=== PATIENT | male | born 1945 | race Caucasian/White ===

== ENCOUNTER 2022-08-05 15:05 | Inpatient (IN) | payer MEDICARE, OTHER ==
[~2022-08-05] VITALS: Ht 170.2 cm; Wt 84.5 kg
[2022-08-05] MEDS ORDERED: TORSEMIDE100 MG PO (15:33)
[2022-08-05] MEDS ORDERED: LOSARTAN POTASS25 MG PO (15:34)
[2022-08-05] MEDS ORDERED: SPIRONOLACTONE25 MG PO (15:34)
[2022-08-05] MEDS ORDERED: ISOSORBIDE MONO60 MG PO (15:35)
[2022-08-05] MEDS ORDERED: METFORMIN HCL500 M1 PO (15:36)
[2022-08-05] MEDS ORDERED: ATORVASTATIN CA40 MG PO (15:37)
[2022-08-05] MEDS ORDERED: TIADYLT ER180 MG PO (15:37)
[2022-08-05] MEDS ORDERED: CLOPIDOGREL75 MG PO (15:38)
[2022-08-05] MEDS ORDERED: ELIQUIS5 MG PO (15:38)
[2022-08-05 20:56] VITALS: BP 127/83
[2022-08-05 23:53] VITALS: BP 117/64
[2022-08-06] VITALS (8 sets, daily range): BP systolic 98–156; BP diastolic 59–76
[2022-08-06] MEDS ORDERED: STIOLTO RESPIMAT4 GM INH (14:19)
[2022-08-06] MEDS ORDERED: NITROGLYCERIN0.4 MG SL (14:26)
--- NOTE | 2022-08-06 23:58 | EKG ---
[facility] [address] [facility] [place], [place] [address] Signed Atrial fibrillation Cannot rule out Inferior infarct , age undetermined Abnormal ECG No previous ECGs available Confirmed by GENTRY GRANADOS MD ([id number] on 08/06/2022 11:58:25 PM Electronically Signed By: GENTRY GRANADOS MD 08/06/22 2358 PATIENT NAME: MATTHEW MONTANEZ Electrocardiogram DATE OF : 41 PHYSICIAN: GENTRY GRANADOS MD REPORT #: [id number] REPORT IS CONFIDENTIAL AND NOT TO BE RELEASED WITHOUT AUTHORIZATION
[2022-08-07 06:05] VITALS: BP 105/71
[2022-08-07 09:07] VITALS: BP 102/52
[2022-08-07 12:14] VITALS: BP 108/84
== END 2022-08-07 12:30 | disposition home or self-care (01) | DRG 291 ==
LOC: ED 15:05 → CCU 19:28
PROVIDERS: ADMIT Internal Medicine; ATTEND Internal Medicine
PROC: 5A09357 Assistance with Respiratory Ventilation, Less than 24 Consecutive Hours, Continuous Positive Airway Pressure (ICD-10-PCS; principal; 2022-08-05)
PROC: 4A033R1 Measurement of Arterial Saturation, Peripheral, Percutaneous Approach (ICD-10-PCS; 2022-08-05)
DX: I50.23 Acute on chronic systolic (congestive) heart failure (principal); J96.02 Acute respiratory failure with hypercapnia; I48.20 Chronic atrial fibrillation, unspecified; Z20.822 Contact with and (suspected) exposure to COVID-19; E11.9 Type 2 diabetes mellitus without complications; E78.5 Hyperlipidemia, unspecified; J44.9 Chronic obstructive pulmonary disease, unspecified; J92.0 Pleural plaque with presence of asbestos; Z95.5 Presence of coronary angioplasty implant and graft; Z99.81 Dependence on supplemental oxygen; I25.2 Old myocardial infarction; Z87.891 Personal history of nicotine dependence; Z79.01 Long term (current) use of anticoagulants; Z79.84 Long term (current) use of oral hypoglycemic drugs; Z79.899 Other long term (current) drug therapy
CPT/HCPCS: 36415; 36600; 71045; 80048; 80053; 82803; 83735; 83880; 84484; 85025; 85060; 85610; 87502; 93005; 93010; 94640; 94660; 96374; 96375; 99285-25; A9270; C9803; J1940; J2930; U0002